=== PATIENT | female | born 1980 | race Caucasian/White ===

== ENCOUNTER → 2016-12-22 | Outpatient (CLI) | payer BC ==
[2016-12-23 14:26] LABS: Beef IgE <0.35 kU/L (<0.35); Beef IgE Class CLASS 0; Chicken IgE Class CLASS 0; Chocolate IgE Class CLASS 0; Cow's Milk IgE Class CLASS 0; Crab IgE <0.35 kU/L (<0.35); Crab IgE Class CLASS 0; Egg White IgE <0.35 kU/L (<0.35); Egg Yolk IgE Class CLASS 0; Gluten IgE Class CLASS 0; Peanut IgE <0.35 kU/L (<0.35); Potato IgE <0.35 kU/L (<0.35); Potato IgE Class CLASS 0; Soybean IgE <0.35 kU/L (<0.35)
[2016-12-23 14:27] LABS: Avocado Class CLASS 0; Banana IgE Class CLASS 0; Coffee IgE <0.35 kU/L (<0.35); Coffee IgE Class CLASS 0; Hazelnut IgE <0.35 kU/L (<0.35); Hazelnut IgE Class CLASS 0; Kiwi IgE <0.35 kU/L (<0.35); Kiwi IgE Class CLASS 0
[2016-12-24 22:11] LABS: Corn IgG 8.1 mcg/mL (< 2.0); Cow's Milk IgG 56.6 mcg/mL (< 2.0); Egg Yolk IgG 10.6 mcg/mL (< 2.0); Peanut IgG 5.8 mcg/mL (< 2.0); Potato IgG 6.1 mcg/mL (< 2.0); Soybean IgG 3.9 mcg/mL (< 2.0); Tomato IgG 5.7 mcg/mL (< 2.0); Wheat IgG 9.6 mcg/mL (< 2.0)
[2016-12-25 12:01] LABS: Banana IgG 14.1 mcg/mL (< 2.0); Beef IgG 17.3 mcg/mL (< 2.0); Chocolate IgG 4.9 mcg/mL (< 2.0); Crab IgG 5.7 mcg/mL (< 2.0); Pork IgG 7.9 mcg/mL (< 2.0)
[2016-12-25 12:02] LABS: Chicken Meat IgG 4.6 mcg/mL (< 2.0); Coffee IgG 6.6 mcg/mL (< 2.0); Orange IgG 5.1 mcg/mL (< 2.0); Rice IgG 15.8 mcg/mL (< 2.0)
[2016-12-25 12:03] LABS: Celery IgG 5.4 mcg/mL (< 2.0); Oat IgG 11.3 mcg/mL (< 2.0)
[2016-12-27 13:41] LABS: Lettuce IgE Class CLASS 0; Pork IgE Class CLASS 0
[2016-12-27 13:42] LABS: Onion IgE <0.35 kU/L (<0.35); Onion IgE Class CLASS 0; Yeast Bakers/Brew IgE <0.35 kU/L (<0.35); Yeast Bakers/Brew IgE Class CLASS 0
[2016-12-27 13:43] LABS: Celery IgE <0.35 kU/L (<0.35); Celery IgE Class CLASS 0; Lobster IgE <0.35 kU/L (<0.35); Lobster IgE Class CLASS 0; Oat IgE Class CLASS 0
[2016-12-27 13:44] LABS: Latex IgE Class CLASS 0
[2016-12-27 13:45] LABS: Tea IgE <0.35 kU/L (<0.35); Tea IgE Class CLASS 0
[2016-12-29 07:55] LABS: Mis test requested (Blood) Onion IgG
[2016-12-29 08:00] LABS: Mis test requested (Blood) Lettuce IgG
[2016-12-29 08:02] LABS: Mis test requested (Blood) Shrimp IgG
[2016-12-29 08:04] LABS: Mis test requested (Blood) Lobster IgG
[2016-12-29 08:08] LABS: Mis test requested (Blood) Strawberry IgG
[2017-01-11 07:30] LABS: Tea IgG 5.2 mcg/mL (<2.0)
== END | disposition home or self-care (01) ==
LOC: LABWHC1 11:27
PROVIDERS: ATTEND Otolaryngology
DX: J30.89 Other allergic rhinitis (principal)
CPT/HCPCS: 36415; 86001; 86003

== ENCOUNTER → 2016-12-29 | Outpatient (CLI) | payer BC ==
[2016-12-30 12:26] LABS: Crab IgE <0.35 kU/L (<0.35); Crab IgE Class CLASS 0; Lettuce IgE Class CLASS 0
[2016-12-30 12:27] LABS: Beef IgE <0.35 kU/L (<0.35); Beef IgE Class CLASS 0; Pork IgE Class CLASS 0
[2016-12-30 12:28] LABS: Onion IgE <0.35 kU/L (<0.35); Onion IgE Class CLASS 0; Salmon IgE <0.35 kU/L (<0.35); Salmon IgE Class CLASS 0; Yeast Bakers/Brew IgE <0.35 kU/L (<0.35); Yeast Bakers/Brew IgE Class CLASS 0
[2016-12-30 12:29] LABS: Celery IgE <0.35 kU/L (<0.35); Celery IgE Class CLASS 0; Chicken IgE Class CLASS 0; Chocolate IgE Class CLASS 0; Egg Yolk IgE Class CLASS 0; Lobster IgE <0.35 kU/L (<0.35); Lobster IgE Class CLASS 0
[2016-12-30 12:30] LABS: Avocado Class CLASS 0; Banana IgE Class CLASS 0; Cow's Milk IgE Class CLASS 0; Egg White IgE <0.35 kU/L (<0.35); Hazelnut IgE <0.35 kU/L (<0.35); Hazelnut IgE Class CLASS 0; Kiwi IgE <0.35 kU/L (<0.35); Kiwi IgE Class CLASS 0; Latex IgE Class CLASS 0; Peanut IgE <0.35 kU/L (<0.35); Potato IgE <0.35 kU/L (<0.35); Potato IgE Class CLASS 0; Soybean IgE <0.35 kU/L (<0.35)
[2016-12-30 12:31] LABS: Alternaria alternata IgE <0.35 kU/L (<0.35); Asperg. fumagatus IgE <0.35 kU/L (<0.35); Asperg. fumagatus IgE Class CLASS 0; Aureo. pullulans IgE <0.35 kU/L (<0.35); Birch(Com.Silvr) IgE Class CLASS 0; Candida albicans IgE Class CLASS 0; Cat Epith & Dander IgE <0.35 kU/L (<0.35); Cat Epith & Dander IgE Class CLASS 0; Clad herbarum IgE <0.35 kU/L (<0.35); Clad herbarum IgE Class CLASS 0; Coffee IgE <0.35 kU/L (<0.35); Coffee IgE Class CLASS 0; Com. Pigweed IgE <0.35 kU/L (<0.35); Com. Pigweed IgE Class CLASS 0; Common Ragweed IgE Class CLASS 0; Dermato. Pteronyssinus Class CLASS I; Dermato. Pteronyssinus IgE 0.39 kU/L (<0.35); Dermato. farinae IgE 0.37 kU/L (<0.35); Dermato. farinae IgE Class CLASS I; English Plantain IgE Class CLASS 0; Epicoccum purpurascens Class CLASS 0; Epicoccum purpurascens IgE <0.35 kU/L (<0.35); Johnson Grass IgE Class CLASS 0; Lamb's Quarter IgE <0.35 kU/L (<0.35); Lamb's Quarter IgE Class CLASS 0; Maple (Box Elder) IgE <0.35 kU/L (<0.35); Maple (Box Elder) IgE Class CLASS 0; Mucor racemosus IgE <0.35 kU/L (<0.35); Mucor racemosus IgE Class CLASS 0; Oak IgE <0.35 kU/L (<0.35); Rhizopus nigricans IgE <0.35 kU/L (<0.35); Rhizopus nigricans IgE Class CLASS 0; S.rostrata/Helminth Class CLASS 0; S.rostrata/Helminth IgE <0.35 kU/L (<0.35); Sycamore(Mpl.Lf) IgE <0.35 kU/L (<0.35); Sycamore(Mpl.Lf) IgE Class CLASS 0; Tea IgE <0.35 kU/L (<0.35); Tea IgE Class CLASS 0; Timothy Grass IgE <0.35 kU/L (<0.35); Timothy Grass IgE Class CLASS 0; Walnut Tree IgE <0.35 kU/L (<0.35); White Ash IgE Class CLASS 0
== END | disposition home or self-care (01) ==
LOC: LABWHC1 10:44
PROVIDERS: ATTEND Otolaryngology
DX: L50.0 Allergic urticaria (principal)
CPT/HCPCS: 36415; 86003

== ENCOUNTER → 2017-02-28 | Outpatient (CLI) | payer BC ==
[2017-03-01 12:59] VITALS: BMI 22.8
== END | disposition home or self-care (01) ==
LOC: DBWHC3 12:13
PROVIDERS: ATTEND Otolaryngology
DX: J30.5 Allergic rhinitis due to food (principal)

== ENCOUNTER 2017-06-03 11:04 | Day surgery (SDC) | payer BC ==
[2017-05-31 15:28] VITALS: BMI 23.0
--- NOTE | 2017-06-03 07:00 | P.GSHP ---
History of Present Illness H&P Date: 06/03/17 CHIEF COMPLAINT: GERD HISTORY OF PRESENT ILLNESS: The patient is a 36-year-old female who presents reports gastroesophageal reflux disease. Upper endoscopy was offered for further evaluation and management. PAST MEDICAL HISTORY: Please see list. PAST SURGICAL HISTORY: Please see list. MEDICATIONS: Please see list. ALLERGIES: Please see list. SOCIAL HISTORY: No illicit drug use FAMILY HISTORY: No reports of Crohn disease or ulcerative colitis. REVIEW OF ORGAN SYSTEMS: CONSTITUTIONAL: No reports of fevers or chills. GI: Denies any blood in stools or constipation. PHYSICAL EXAM: VITAL SIGNS: Stable GENERAL: Well-developed and pleasant in no acute distress. HEENT: No scleral icterus. Extraocular movements grossly intact. Moist buccal mucosa. NECK: Supple without lymphadenopathy. CHEST: Unlabored respirations. Equal bilateral excursions. CARDIOVASCULAR: Regular rate and rhythm. Distal 2+ pulses. ABDOMEN: Soft, nondistended. MUSCULOSKELETAL: No clubbing, cyanosis, or edema. ASSESSMENT: 1. Gastroesophageal reflux disease PLAN: 1. Recommend proceeding with an upper endoscopy Past Medical History Past Medical History: GERD/Reflux Additional Past Medical History / Comment(s): hiatal hernia, UPPER ABDOMINAL PAIN History of Any Multi-Drug Resistant Organisms: None Reported Past Surgical History: Section, Cholecystectomy, Hernia Repair, Tubal Ligation Additional Past Surgical History / Comment(s): X2, RT FOOT X2, HIATAL HERNIA REPAIR Past Anesthesia/Blood Transfusion Reactions: Motion Sickness, Postoperative Nausea & Vomiting (PONV) Smoking Status: Current every day smoker - Past Family History Mother Family Medical History: No Reported History Medications and Allergies Home Medications Medication Instructions Recorded Confirmed Type Loratadine 10 mg PO DAILY 05/31/17 05/31/17 History diphenhydrAMINE [Benadryl] 25 mg PO DAILY PRN 05/31/17 05/31/17 History Allergies Allergy/AdvReac Type Severity Reaction Status Date / Time No Known Allergies Allergy Verified 05/31/17 15:13
[~2017-06-03 11:04] MED LIST: LACTATED RINGERS 1,000 ML IV SCH
[2017-06-03 12:09] VITALS: TEMP 97
[2017-06-03] MEDS ORDERED: LIDOCAINE 1% 20 ML VIAL (10MG/ML) FOR IV START INTRADERMA ONE (12:11)
[2017-06-03] MEDS ORDERED: DEXAMETHASONE SOD PHOS (MDV) 100 MG/10 ML VIAL IVP ONE (12:26)
[2017-06-03] MEDS ORDERED: ONDANSETRON 4 MG/2 ML VIAL IVP ONE (12:27)
[2017-06-03] MEDS ORDERED: PROPOFOL 10 MG/ML 20 ML VIAL IV ONE (12:35)
[2017-06-03] MEDS ORDERED: fentaNYL (PF) 50 MCG/ML 2 ML AMP ONE (12:35)
[2017-06-03] MEDS ORDERED: LIDOCAINE 1% INJ 10MG/ML (20 ML MDV) ONE (12:35)
--- NOTE | 2017-06-03 12:49 | P.PCN ---
Date of Procedure: 06/03/17 Description of Procedure: PREOPERATIVE DIAGNOSIS: Gastroesophageal reflux disease. Epigastric abdominal pain POSTOPERATIVE DIAGNOSIS: Gastroesophageal reflux disease. Epigastric abdominal pain Gastritis, severe chronic with mild bleeding Duodenitis OPERATION: Esophagogastroduodenoscopy with biopsies along antrum and duodenum SURGEON: Zoe Spear MD ANESTHESIA: MAC. INDICATIONS: The patient is a 36-year-old female who presents with a history of reflux disease. Benefits and risks of the procedure were described. Informed consent was obtained. DESCRIPTION: The patient was brought into the endoscopy suite and laid in the left lateral decubitus position. An Olympus gastroscope was passed along the posterior oropharynx down to the distal esophagus where the squamocolumnar junction was encountered at 38 cm from the incisors. The stomach was entered and bile reflux was found. Additional findings are listed below. Biopsies with cold forceps were obtained of the antrum and duodenum. The first through third portion of the duodenum was examined and remarkable mild inflammation. Retroflexion of the scope confirmed Hill grade 2 lower esophageal valve. The squamocolumnar junction demostrated early and acute LA grade A erosive esophagitis. The stomach was desufflated. The patient tolerated the procedure well. FINDINGS: Squamocolumnar junction 38 cm from the incisors. Diaphragmatic hiatus at 38 cm. Hill grade 2 lower esophageal valve. LA grade A erosive esophagitis. Mild duodenitis. Moderate gastritis RECOMMENDATIONS: Start medical therapy. Further recommendations pending results of pathology report. Upper endoscopy as needed. Plan - Discharge Summary New Discharge Prescriptions: New Ranitidine HCl [Zantac] 150 mg PO BID #60 tab No Action diphenhydrAMINE [Benadryl] 25 mg PO DAILY PRN PRN Reason: ALLERGIES Loratadine 10 mg PO DAILY Discharge Medication List Loratadine 10 mg PO DAILY 05/31/17 [History] diphenhydrAMINE [Benadryl] 25 mg PO DAILY PRN 05/31/17 [History] Ranitidine HCl [Zantac] 150 mg PO BID #60 tab 06/03/17 [Rx] Follow up Appointment(s)/Referral(s): Zoe Spear MD [STAFF PHYSICIAN] - 06/21/17 Patient Instructions/Handouts: Duodenitis (DC), Gastritis (DC) Discharge Disposition: HOME SELF-CARE
[2017-06-03 12:52] VITALS: BP 107/55
[2017-06-03 13:09] VITALS: PULSE 78; RESP 18
== END 2017-06-03 13:32 | disposition home or self-care (01) ==
LOC: ORWHC2ENDO 11:04
PROVIDERS: ATTEND Surgery Plastic and Reconstructive Surgery
DX: K29.50 Unspecified chronic gastritis without bleeding (principal); K29.80 Duodenitis without bleeding; K44.9 Diaphragmatic hernia without obstruction or gangrene; K21.9 Gastro-esophageal reflux disease without esophagitis; K22.10 Ulcer of esophagus without bleeding; R13.10 Dysphagia, unspecified; F17.210 Nicotine dependence, cigarettes, uncomplicated; Z79.899 Other long term (current) drug therapy
CPT/HCPCS: 81025; 88305; 43239; J2405; J2001; J3010; J1100; J2704

== ENCOUNTER → 2017-10-12 | Outpatient (CLI) | payer BC ==
--- NOTE | 2017-10-12 12:19 | XR ---
EXAMINATION TYPE: XR chest 2V DATE OF EXAM: 10/12/2017 COMPARISON: NONE TECHNIQUE: PA and lateral views submitted. HISTORY: Chest pain FINDINGS: The lungs are clear and there is no pneumothorax, pleural effusion, or focal pneumonia. Hypertrophi c change of the spine. IMPRESSION: 1. No acute process.
[2017-10-12 19:05] LABS: Gliadin AB IgA, Unit 7.5 U/mL
[2017-10-12 19:14] LABS: Peanut IgE <0.10 kU/L; Shrimp IgE <0.10 kU/L; Soybean IgE <0.10 kU/L
[2017-10-12 19:26] LABS: Dog Dander IgE 0.32 kU/L; Egg White IgE <0.10 kU/L; Oak IgE <0.10 kU/L
[2017-10-12 22:12] LABS: Birch IgE <0.10 kU/L; Cat Epith & Dander IgE 0.19 kU/L; Dermato. farinae IgE <0.10 kU/L; Ragweed,Common IgE <0.10 kU/L
[2017-10-13 14:29] LABS: Crab IgE <0.35 kU/L (<0.35); Crab IgE Class CLASS 0
[2017-10-13 14:30] LABS: Alt. alternata IgE Class CLASS 0; Alternaria alternata IgE <0.35 kU/L (<0.35); Chocolate IgE Class CLASS 0; Lobster IgE <0.35 kU/L (<0.35); Lobster IgE Class CLASS 0; Meadow Grs (KY blue) IgE <0.35 kU/L (<0.35); Meadow Grs (KY blue) IgE Class CLASS 0; Willow Tree IgE <0.35 kU/L (<0.35)
[2017-10-13 14:31] LABS: Ragweed, Giant IgE <0.35 kU/L (<0.35); Ragweed, Giant IgE Class CLASS 0
== END | disposition home or self-care (01) ==
LOC: LABWHC1 11:14
PROVIDERS: ATTEND Allergy & Immunology
DX: T78.2XXA Anaphylactic shock, unspecified, initial encounter (principal); T78.3XXA Angioneurotic edema, initial encounter
CPT/HCPCS: 36415; 71046; 82784; 82785; 83516; 83520; 86003; 86160; 86161

== ENCOUNTER → 2017-10-19 | Outpatient (CLI) | payer BC | END | disposition home or self-care (01) | LOC: LABWHC1 17:27 | PROVIDERS: ATTEND Allergy & Immunology | DX: T78.3XXD Angioneurotic edema, subsequent encounter (principal) | CPT/HCPCS: 36415; 86160 ==

== ENCOUNTER → 2018-06-29 | Outpatient (CLI) | payer BC ==
--- NOTE | 2018-06-29 15:41 | US ---
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 GLAND SIZE: Right Lobe: 5.3 x 2.1 x 1.5 cm Overall Parenchyma: homogenous Left Lobe: 4.9 x 1.6 x 1.6 cm Overall Parenchyma: homogeneous Isthmus Thickness: 0.2 cm NODULES RIGHT: # of nodules measured on right: 2 1. 0.7 X 0.6 x 0.4 cm hypoechoic mixed nodule at the upper pole with well-defined margins; present with wall microcalcification. This nodule is wider than tall and shows no intranodular vascularity. 2. 0.4 X 0.4 x 0.3 cm hypoechoic mixed nodule at the mid pole with well-defined margins. This nodul e is wider than tall and shows intranodular vascularity. LEFT: # of nodules measured on left: 0 ISTHMUS: # of nodules measured in the isthmus: 0 Bilateral neck scanned: no evidence of lymphadenopathy. Thyroid gland is normal in size and homogeneous echotexture with 2 small subcentimeter right-sided th yroid nodules marked by technologist IMPRESSION: Normal-sized thyroid without suspicious greater than 1 cm nodule bilaterally.
== END | disposition home or self-care (01) ==
LOC: RADUSWWP 14:59
PROVIDERS: ATTEND Allergy & Immunology
DX: E04.9 Nontoxic goiter, unspecified (principal)
CPT/HCPCS: 76536

== ENCOUNTER → 2019-03-01 | Outpatient (CLI) | payer BC ==
[2019-03-01 12:16] LABS: Basophils % (A) 1 %; Eosinophils # (A) 0.2 k/uL (0-0.7); Eosinophils % (A) 2 %; HGB 13.5 gm/dL (11.4-16.0); Lymphocytes # (A) 1.8 k/uL (1.0-4.8); Lymphocytes % (A) 26 %; MCHC 34.6 g/dL (31.0-37.0); MCV 98.3 fL (80.0-100.0); Mean Platelet Volume 7.9; Monocytes # (A) 0.4 k/uL (0-1.0); Monocytes % (A) 6 %; Neutrophils # (A) 4.4 k/uL (1.3-7.7); Neutrophils % (A) 63 %; Platelet Count 218 k/uL (150-450); RBC 3.96 m/uL (3.80-5.40); RDW 12.8 % (11.5-15.5); WBC 6.9 k/uL (3.8-10.6)
== END | disposition home or self-care (01) ==
LOC: LABPAT 11:15
PROVIDERS: ATTEND Obstetrics & Gynecology
DX: Z01.812 Encounter for preprocedural laboratory examination (principal); N92.0 Excessive and frequent menstruation with regular cycle
CPT/HCPCS: 36415; 85025

== ENCOUNTER 2019-03-05 08:48 | Day surgery (SDC) | payer BC ==
[2019-03-01 14:27] VITALS: BMI 28.0
[~2019-03-05 08:48] MED LIST changes: +DEXAMETHASONE SOD PHOSPHATE 10 MG/ML 1 ML VIAL IV ONE; +LIDOCAINE 1% 20 ML VIAL (10MG/ML) FOR IV START INTRADERMA PRN; +ONDANSETRON 4 MG/2 ML VIAL IVP ONE; +Pre Op ABX Message 1 EACH MISC MISCELLANE ONE; +fentaNYL (PF) 50 MCG/ML 2 ML AMP IV PRN
[2019-03-05] MEDS ORDERED: LACTATED RINGERS 1,000 ML IV ONE (09:06)
[2019-03-05] MEDS ORDERED: SCOPOLAMINE 1.5MG/72HR PATCH TRANSDERM ONE (09:16)
[2019-03-05] MEDS ORDERED: PROPOFOL 10 MG/ML 20 ML VIAL IV ONE (10:17)
[2019-03-05] MEDS ORDERED: MIDAZOLAM 2 MG/2 ML VIAL ONE (10:17)
[2019-03-05] MEDS ORDERED: diphenhydrAMINE 50 MG/ML 1 ML VIAL ONE (10:17)
[2019-03-05] MEDS ORDERED: fentaNYL (PF) 50 MCG/ML 2 ML AMP ONE (10:17)
[2019-03-05] MEDS ORDERED: ACETAMINOPHEN IV (For NPO) 1,000 MG/100 ML VIAL ONE (10:17)
[2019-03-05] MEDS ORDERED: LIDOCAINE 1% INJ 10MG/ML (20 ML MDV) ONE (10:17)
--- NOTE | 2019-03-05 10:48 | P.OP ---
Date of Procedure: 03/05/19 Preoperative Diagnosis: Menorrhagia Postoperative Diagnosis: Same Procedure(s) Performed: Hysteroscopy, NovaSure endometrial ablation Anesthesia: DANIELLE Surgeon: Zoe Giraldo Estimated Blood Loss (ml): 10 IV fluids (ml): 200 Urine output (ml): 300 Pathology: none sent Condition: stable Disposition: PACU Description of Procedure: Patient is brought to the operating suite where a general anesthetic is administered without difficulty. She's placed in the dorsal lithotomy position. The appropriate timeout is performed to assure proper patient procedure identification. Urine hCG is negative. Examination under anesthesia reveals a small anteverted anteflex uterus, negative adnexa bilaterally. Perineal body, cervix and vagina are all prepped and draped in the usual sterile fashion. The bladder is drained for approximately 300 mL of clear yellow urine. Weighted speculum was placed into the vagina and the anterior lip of the cervix is grasped with an Allis clamp. The uterus sounds to a depth of 10.5 cm in the anteverted position. The cervix is gently and systematically dilated using Hanks dilators. Hysteroscope was placed and the cavity is distended with sterile saline. Inspection of the cavity reveals a fair amount of proliferative appearing tissue, no obvious polyps, fibroids, septa, defects. Hysteroscope was removed. NovaSure wand is then placed and seated appropriately. The uterine depth of 6.5 cm, width of 4.6 cm is calibrated. The machine is enabled. For 68 seconds with a power of 164 W the procedure is carried out. When the machine shuts off, the wand is reduced and removed. Hysteroscope was once again placed and the cavity is noted to be uniformly blanched. Instrumentation is removed from the vagina. Cervix is clean and dry. All sponge needle and enhancement counts are correct. Patient is brought back to the recovery room in stable condition with vital signs pulse 52, blood pressure 97/50, pulse ox 100%. Respirations 12. Ofirmev is given prior to leaving the room. Patient will follow-up with me in the office in 2 weeks.
[2019-03-05 11:01] VITALS: TEMP 98.4
[2019-03-05] MEDS: HYDROmorphone 0.5 MG/0.5 ML SYRINGE IVP PRN ×4 (11:02→11:25)
[2019-03-05] MEDS ORDERED: ONDANSETRON 4 MG/2 ML VIAL IVP ONE (11:30)
[2019-03-05] MEDS ORDERED: KETOROLAC 30 MG/ML 1 ML VIAL IVP ONE (12:14)
[2019-03-05] MEDS ORDERED: fentaNYL (PF) 50 MCG/ML 2 ML AMP IVP ONE (13:04)
[2019-03-05 13:21] VITALS: BP 106/69; PULSE 52; RESP 16
== END 2019-03-05 13:37 | disposition home or self-care (01) ==
LOC: OR 08:48
PROVIDERS: ATTEND Obstetrics & Gynecology
DX: N92.0 Excessive and frequent menstruation with regular cycle (principal); F17.210 Nicotine dependence, cigarettes, uncomplicated; F32.9 Major depressive disorder, single episode, unspecified; F41.9 Anxiety disorder, unspecified; Z98.890 Other specified postprocedural states; Z90.49 Acquired absence of other specified parts of digestive tract; Z98.51 Tubal ligation status; Z79.899 Other long term (current) drug therapy; Z83.3 Family history of diabetes mellitus; Z82.79 Family history of other congenital malformations, deformations and chromosomal abnormalities; Z80.49 Family history of malignant neoplasm of other genital organs; Z88.6 Allergy status to analgesic agent
CPT/HCPCS: 81025; 58563; J2250; J1200; J1100; J2405; J2001; J3010; J1885; J0131; J2704; J1170

== ENCOUNTER → 2021-12-09 | Outpatient (CLI) | payer BC ==
--- NOTE | 2021-12-09 10:10 | MM ---
Reason for Exam: Clinical finding. Last mammogram was performed 4 year(s) and 9 month(s) ago. Indicated Problems: Lump or thickening of the left side for 3 Month(s). Patient History: Menarche at age 10. First Full-Term at age 28. Premenopausal. Patient has history of breast feeding. Paternal grandmother had breast cancer, age 54. Paternal aunt had breast cancer, age 37. Mother had breast cancer, bilateral. Last menstrual period: 12/02/2021 Risk Values: Jayashree 5 year model risk: 1.3%. NCI Lifetime model risk: 20.3%. Prior Study Comparison: 03/01/2017 Bilateral MG screening mammo w CAD - 2, [facility]. Tissue Density: The breast tissue is extremely dense which could obscure a lesion on mammography. Findings: Analyzed By CAD. No distinct new mass or suspicious group of microcalcification in either breast. Overall Assessment: Incomplete: need additional imaging evaluation, BI-RAD 0 Management: Diagnostic Breast Ultrasound of the left breast. Targeted ultrasound left breast for palpable. Electronically signed and approved by: Marques Hernandez M.D.
--- NOTE | 2021-12-09 10:30 | USB ---
Reason for Exam: Clinical finding. Patient History: Menarche at age 10. First Full-Term at age 28. Premenopausal. Patient has history of breast feeding. Paternal grandmother had breast cancer, age 54. Paternal aunt had breast cancer, age 37. Mother had breast cancer, bilateral. Risk Values: Jayashree 5 year model risk: 1.3%. NCI Lifetime model risk: 20.3%. Technique: Method: Targeted. Prior Study Comparison: 03/01/2017 Bilateral MG screening mammo w CAD - 2, [facility]. Findings: The upper inner quadrant of the left breast, the axilla of the left breast and the retroareolar of the left breast were scanned. Targeted ultrasound palpable abnormality. No solid or cystic masses are identified on images obtained. Overall Assessment: Negative, BI-RAD 1 Management: Screening Mammogram of both breasts in 1 year. Manage palpable on clinical basis. Return to routine follow-up. Patient given results at time of dictation. Electronically signed and approved by: Marques Hernandez M.D.
== END | disposition home or self-care (01) ==
LOC: RADMAMWWP 09:07
PROVIDERS: ATTEND Family Medicine
DX: N63.21 Unspecified lump in the left breast, upper outer quadrant (principal); Z80.3 Family history of malignant neoplasm of breast
CPT/HCPCS: 77062; 77066